=== PATIENT | male | born 1965 | race Caucasian/White ===

== ENCOUNTER 2019-08-25 08:01 | Emergency (ER) | payer OTHER ==
[2019-08-25 08:25] LABS: ABSOLUTE BASOPHILS # (AUTO) 0.1 10^3/uL (0.0-0.2); ABSOLUTE EOSINOPHILS # (AUTO) 0.2 10^3/uL (0.0-0.6); ABSOLUTE LYMPHOCYTES (AUTO) 1.2 10^3/uL (0.5-4.7); ABSOLUTE MONOCYTES (AUTO) 0.8 10^3/uL (0.1-1.4); ABSOLUTE NEUT (AUTO) 9.7 10^3/uL (1.7-8.2); BASOPHILS % (AUTO) 0.4 % (0-2); EOSINOPHILS % (AUTO) 1.7 % (0-6); HEMATOCRIT 35.2 % (37.9-51.0); LYMPHOCYTES % (AUTO) 10.3 % (13-45); MEAN CORPUSCULAR HEMOGLOBIN 31.2 pg (27.0-33.4); MEAN CORPUSCULAR HGB CONC 34.1 g/dL (32.0-36.0); MEAN CORPUSCULAR VOLUME 92 fl (80-97); MONOCYTES % (AUTO) 6.9 % (3-13); PLATELET COUNT 332 10^3/uL (150-450); RED BLOOD COUNT 3.85 10^6/uL (4.35-5.55); RED CELL DISTRIBUTION WIDTH 15.2 % (11.5-14.0); SEGMENTED NEUTROPHILS % (AUTO) 80.7 % (42-78); TOTAL CELLS COUNTED % (AUTO) 100 %
[2019-08-25 08:36] LABS: ALBUMIN 4.1 g/dL (3.5-5.0); ALKALINE PHOSPHATASE 73 U/L (38-126); ANION GAP 8 (5-19); ASPARTATE AMINO TRANSFERASE 31 U/L (17-59); BILIRUBIN,TOTAL 1.4 mg/dL (0.2-1.3); BLOOD UREA NITROGEN 35 mg/dL (7-20); CALCIUM 9.2 mg/dL (8.4-10.2); CARBON DIOXIDE 27 mmol/L (22-30); CHLORIDE 104 mmol/L (98-107); GLUCOSE 105 mg/dL (75-110); POTASSIUM 4.6 mmol/L (3.6-5.0); TOTAL PROTEIN 7.1 g/dL (6.3-8.2)
--- NOTE | 2019-08-25 08:36 | ER Document Report ---
ED GI Bleed / Rectal Pain <TIMOTHY SANDOVAL - Last Filed: 08/25/19 15:56> <MARTIN TOMAS - Last Filed: 08/25/19 16:09> - General Chief Complaint: GI Bleeding Stated Complaint: VOMITING BLOOD Time Seen by Provider: 08/25/19 08:19 Notes: CHIEF COMPLAINT: Vomiting blood this morning HPI: 54-year-old male with a history of a mechanical aortic valve and aortic repair who is on Coumadin presenting for possibly vomiting blood this morning. Patient states he just traveled here from [place]. They went out to eat last night he felt fine going to bed but woke up around 530 this morning with some upper abdominal discomfort and nausea. Patient had 3 episodes of vomiting states it was dark black with what appeared to be some chunks of clots. No sore throat. Denies nosebleed. Currently complains of very mild nausea but no abdominal pain. Patient states last INR a week ago was 3.2 and is within his range of 2.5-3.5 ROS: See HPI - all other systems were reviewed and are otherwise negative Constitutional: no fever Eyes: no drainage, no blurred vision ENT: no runny nose, no sore throat Cardiovascular: no chest pain Resp: no SOB, no cough GI: + vomiting, no diarrhea, no abdominal pain : no dysuria Integumentary: no rash Allergy: no hives Musculoskeletal: no extremity pain or swelling Neurological: no numbness/tingling, no weakness MEDICATIONS: I agree with the patient medications as charted by the RN. ALLERGIES: I agree with the allergies as charted by the RN. PAST MEDICAL HISTORY/PAST SURGICAL HISTORY: Reviewed and agree as charted by RN. SOCIAL HISTORY: Reviewed and agree as charted by RN. FAMILY HISTORY: No significant familial comorbid conditions directly related to patient complaint EXAM: Reviewed vital signs as charted by RN. CONSTITUTIONAL: Alert and oriented and responds appropriately to questions. Well-appearing; well-nourished HEAD: Normocephalic; atraumatic EYES: PERRL; Conjunctivae clear, sclerae non-icteric ENT: normal nose; no rhinorrhea; moist mucous membranes; pharynx without lesions noted, no uvula edema or deviation, no tonsillar hypertrophy, phonation normal NECK: Supple without meningismus; non-tender; no cervical lymphadenopathy, no masses CARD: RRR; no murmurs, + clicks, no rubs, no gallops; symmetric distal pulses RESP: Normal chest excursion without splinting or tachypnea; breath sounds clear and equal bilaterally; no wheezes, no rhonchi, no rales, pulse oximetry 5% on room air not hypoxic ABD/GI: Normal bowel sounds; non-distended; soft, non-tender, no rebound, no guarding; no palpable organomegaly or masses. BACK: The back appears normal and is non-tender to palpation, there is no CVA tenderness EXT: Normal ROM in all joints; non-tender to palpation; no cyanosis, no effusions, no edema SKIN: Normal color for age and race; warm; dry; good turgor; no acute lesions noted NEURO: Moves all extremities equally; Motor and sensory function intact PSYCH: The patient's mood and manner are appropriate. Grooming and personal hygiene are appropriate. MDM: 54-year-old male on Coumadin presenting for vomiting possibly blood this morning. Denies dark tarry stools denies rectal bleeding. Will obtain screening labs, plan to observe patient for recurrent vomiting (TIOMTHY SANDOVAL) - Related Data Allergies/Adverse Reactions: No Known Allergies Allergy (Verified 08/25/19 09:04) Past Medical History - Social History Smoking Status: Unknown if Ever Smoked Family History: Reviewed & Not Pertinent <TIMOTHY SANDOVAL - Last Filed: 08/25/19 15:56> Physical Exam - Vital signs Vitals: Temp Resp BP Pulse Ox 98.4 F 22 H 150/89 H 95 08/25/19 08:08 08/25/19 08:08 08/25/19 08:08 08/25/19 08:08 Course - Laboratory Result Diagrams: 08/25/19 07:25 08/25/19 07:25 <TIMOTHY SANDOVAL - Last Filed: 08/25/19 15:56> - Laboratory Result Diagrams: 08/25/19 15:20 08/25/19 07:25 <MARTIN TOMAS - Last Filed: 08/25/19 16:09> - Re-evaluation Re-evalutation: 08/25/19 08:[address] Tomas attending. Will drop NG tube to [facility] 08/25/19 09:[address] Wong, surgery. Case was discussed, labs reviewed, history reviewed. He feels that as we cannot reverse the Coumadin because of the aortic valve he would be unable to manage this patient here and request that we transfer the patient. I spoke with the patient he would prefer that we call [facility] first as his family is closer to [place]. 08/25/19 09:46 I spoke with [facility]. They are on regional diversion for medicine admissions and cannot accept the patient at this time 08/25/19 09:52 Called [facility] [place]. 08/25/19 09:[address] Duran Schwab, hospitalist service. We discussed the case and labs. They will accept the patient in transfer. I discussed this with the patient as he initially had wanted to stay closer to [place] but he is willing to go to [facility] (TIMOTHY SANDOVAL) 08/25/19 16:08 Patient is being transferred to [facility] with upper GI bleeding., evaluation at the time of transfer, patient is hemodynamically stable. Transport team successfully moved the patient onto the stretcher without incident. Patient stable for transport. (MARTIN TOMAS) - Vital Signs Vital signs: Temp Pulse Resp BP Pulse Ox 97.7 F 80 21 H 135/96 H 98 08/25/19 15:30 08/25/19 15:16 08/25/19 15:30 08/25/19 15:30 08/25/19 15:30 - Laboratory Laboratory results interpreted by me: 08/25/19 08/25/19 08/25/19 07:25 07:25 07:25 WBC 12.0 H RBC 3.85 L Hgb 12.0 L Hct 35.2 L RDW 15.2 H Lymph % (Auto) 10.3 L Absolute Neuts (auto) 9.7 H Seg Neutrophils % 80.7 H PT 27.5 H BUN 35 H Creatinine 1.26 H Est GFR (MDRD) Non-Af 59 L Total Bilirubin 1.4 H Urine Protein Urine Ketones Urine Blood Crossmatch 08/25/19 08/25/19 08/25/19 08:38 08:45 11:14 WBC RBC 3.63 L Hgb 11.3 L Hct 33.7 L RDW 15.1 H Lymph % (Auto) 9.6 L Absolute Neuts (auto) 8.5 H Seg Neutrophils % 83.1 H PT BUN Creatinine Est GFR (MDRD) Non-Af Total Bilirubin Urine Protein 30 H Urine Ketones 20 H Urine Blood SMALL H Crossmatch See Detail 08/25/19 08/25/19 15:20 15:20 WBC RBC 3.61 L Hgb 10.9 L Hct 33.0 L RDW 15.2 H Lymph % (Auto) Absolute Neuts (auto) Seg Neutrophils % PT 24.3 H BUN Creatinine Est GFR (MDRD) Non-Af Total Bilirubin Urine Protein Urine Ketones Urine Blood Crossmatch Critical Care Note - Critical Care Note Total time excluding time spent on procedures (mins): 30 - Upper GI bleed hypercoagulable state requiring IV medication intervention and emergent transfer <TIMOTHY SANDOVAL - Last Filed: 08/25/19 15:56> Discharge <TIMOTHY SANDOVAL - Last Filed: 08/25/19 15:56> <MARTIN TOMAS - Last Filed: 08/25/19 16:09> - Discharge Clinical Impression: Upper GI bleed, Hypercoagulable state Condition: Fair Disposition: [facility]
[2019-08-25] MEDS ORDERED: LIDOCAINE 2% URO-JET 5 ML KIT MM ONE (08:59)
[2019-08-25 09:14] LABS: APPEARANCE,URINE CLEAR; BILIRUBIN,URINE NEGATIVE (NEGATIVE); COLOR,URINE YELLOW; GLUCOSE, URINE NEGATIVE (NEGATIVE); KETONES,URINE 20 mg/dL (NEGATIVE); LEUKOCYTE ESTERASE,URINE NEGATIVE (NEGATIVE); NITRITE,URINE NEGATIVE (NEGATIVE); PROTEIN,URINE 30 mg/dL (NEGATIVE); URINE SPECIFIC GRAVITY 1.024; UROBILINOGEN,URINE NEGATIVE mg/dL (<2.0)
[2019-08-25 09:26] LABS: PROTHROMBIN TIME 27.5 SEC (11.4-15.4)
[2019-08-25] MEDS ORDERED: PANTOPRAZOLE SODIUM 40 MG VIAL IV ONE (09:36)
[2019-08-25] MEDS ORDERED: NORMAL SALINE 1000 ML 1,000 ML IV ONE (11:08)
[2019-08-25] MEDS ORDERED: NORMAL SALINE 250 ML IV PRN ×3 (11:10→11:24)
[2019-08-25 11:19] LABS: ABSOLUTE MONOCYTES (AUTO) 0.7 10^3/uL (0.1-1.4); ABSOLUTE NEUT (AUTO) 8.5 10^3/uL (1.7-8.2); BASOPHILS % (AUTO) 0.3 % (0-2); EOSINOPHILS % (AUTO) 0.3 % (0-6); HEMATOCRIT 33.7 % (37.9-51.0); HEMOGLOBIN 11.3 g/dL (13.5-17.0); LYMPHOCYTES % (AUTO) 9.6 % (13-45); MEAN CORPUSCULAR HGB CONC 33.4 g/dL (32.0-36.0); MEAN CORPUSCULAR VOLUME 93 fl (80-97); MONOCYTES % (AUTO) 6.7 % (3-13); PLATELET COUNT 320 10^3/uL (150-450); RED BLOOD COUNT 3.63 10^6/uL (4.35-5.55); RED CELL DISTRIBUTION WIDTH 15.1 % (11.5-14.0); SEGMENTED NEUTROPHILS % (AUTO) 83.1 % (42-78); TOTAL CELLS COUNTED % (AUTO) 100 %; WHITE BLOOD COUNT 10.3 10^3/uL (4.0-10.5)
[2019-08-25] MEDS ORDERED: PANTOPRAZOLE SODIUM 40 MG VIAL IV PRN (11:27)
[2019-08-25 15:37] LABS: HEMOGLOBIN 10.9 g/dL (13.5-17.0); MEAN CORPUSCULAR HEMOGLOBIN 30.3 pg (27.0-33.4); MEAN CORPUSCULAR HGB CONC 33.2 g/dL (32.0-36.0); MEAN CORPUSCULAR VOLUME 91 fl (80-97); PLATELET COUNT 234 10^3/uL (150-450); RED BLOOD COUNT 3.61 10^6/uL (4.35-5.55); RED CELL DISTRIBUTION WIDTH 15.2 % (11.5-14.0); WHITE BLOOD COUNT 8.8 10^3/uL (4.0-10.5)
[2019-08-25 15:45] LABS: INTERNATIONAL RATION (INR) 2.14; PROTHROMBIN TIME 24.3 SEC (11.4-15.4)
[2019-08-25 15:54] VITALS: BP 135/96
== END 2019-08-25 15:55 | disposition short-term general hospital (02) ==
LOC: ER 08:01
DX: K92.2 Gastrointestinal hemorrhage, unspecified (principal); D68.59 Other primary thrombophilia; R11.2 Nausea with vomiting, unspecified; I95.9 Hypotension, unspecified; R61 Generalized hyperhidrosis; Z95.2 Presence of prosthetic heart valve; Z79.01 Long term (current) use of anticoagulants; Z20.828 Contact with and (suspected) exposure to other viral communicable diseases
CPT/HCPCS: 96376; 99291; 96361; 96365; 96366; 86900; 86901; 36415; 36430; 86850; 85025; 85610; 82271; 87635; 80053; 81001; 86920; P9017; P9016; C9113; J7030; J3490; C9803